=== PATIENT | female | born 1955 | race Caucasian/White ===

== ENCOUNTER 2024-02-29 06:46 | Emergency (ER) | payer MEDICARE, BC, SELFPAY ==
[2024-02-29] VITALS (11 sets, daily range): BP systolic 85–122; BP diastolic 47–58; PULSE 64–85; RESP 15–53; TEMP 36.9; O2SAT 95–100; BMI 18.8
--- NOTE | 2024-02-29 07:04 | DI.RAD.S_ITS ---
PROCEDURE: XR CHEST 1V INDICATIONS: chest pain TECHNIQUE: One view of the chest was acquired. COMPARISON: None. FINDINGS: Surgical changes and devices: None. Lungs and pleura: Lungs are clear. No pleural effusions or pneumothorax. Mediastinum: Mediastinal contours appear normal. Heart size is normal. Bones and chest wall: No suspicious bony lesions. Overlying soft tissues appear unremarkable. IMPRESSION: No acute cardiopulmonary abnormality is seen. Dictated by: Brent Goetz M.D. on 02/29/2024 at 8:07 Approved by: Brent Goetz M.D. on 02/29/2024 at 8:10
[2024-02-29 07:13] LABS: Add Manual Diff / Slide Review NO; Basophils Absolute Auto 0 /uL (0-100); Basophils Percent Auto 0.4 % (0-2); Eosinophils Absolute Auto 0 /uL (0-450); Eosinophils Percent Auto 0.1 % (2-4); Hematocrit 36.7 % (36-46); Hemoglobin 12.5 g/dL (12.0-16.0); Lymphocytes Absolute Auto 1100 /uL (1100-4500); Lymphocytes Percent Auto 13.4 % (25-40); Mean Corpuscular HGB Conc 34.1 % (30-36); Mean Corpuscular Hemoglobin 30.5 PG (26-34); Mean Corpuscular Volume 89.5 fL (80-100); Monocytes Absolute Auto 900 /uL (0-900); Monocytes Percent Auto 10.9 % (3-14); Neutrophils Absolute Auto 6100 /uL (1500-7000); Neutrophils Percent Auto 75.2 % (50-75); Platelet Count 268 X10^3/uL (150-400); Red Cell Distribution Width 12.8 % (11.6-14.8); White Blood Cell Count 8.1 X10^3/uL (4.5-11.0)
[2024-02-29 07:16] LABS: INR 1.1 (0.9-1.3); Prothrombin Time 12.5 SECONDS (9.4-12.5)
[2024-02-29 07:18] LABS: PTT Partial Thromboplastin Tim 35 SECONDS (25.1-36.5)
[2024-02-29 07:20] LABS: Alanine Aminotransferase 14 IU/L (<35); Albumin 4.6 g/dL (3.5-5.0); Albumin Globulin Ratio 1.4 (1.0-2.8); Alkaline Phosphatase 49 U/L (38-126); Aspartate Aminotransferase 22 IU/L (14-36); BUN Creatinine Ratio 15.3 (6-22); Bilirubin Total 1.8 mg/dL (0.2-1.3); Blood Urea Nitrogen 13 mg/dL (7-17); Carbon Dioxide 26 mmol/L (22-32); Chloride 107 mmol/L (98-107); Creatine Kinase 54 U/L (30-135); Estimated Glomerular Filt Rate > 60 mL/min (>60); Globulin 3.2 g/dL (1.7-4.1); Glucose 120 mg/dL (80-110); HEMOLYSIS < 15 (0-50); Lipase 39 U/L (23-300); Magnesium 2.1 mg/dL (1.6-2.3); Potassium 3.9 mmol/L (3.4-5.1); Sodium 139 mmol/L (137-145); Total Protein 7.8 g/dL (6.3-8.2)
[2024-02-29] MEDS: ASPIRIN 81 MG CHEW TAB 324 MG PO (07:20)
[2024-02-29 07:31] LABS: Troponin I < 0.012 ng/mL (0.01-0.034)
--- NOTE | 2024-02-29 07:35 | ED_ITS ---
HPI - Chest Pain General Chief Complaint: Chest Pain Stated Complaint: chest pain Time Seen by Provider: 02/29/24 06:48 Source: patient Mode of arrival: Ambulatory Limitations: no limitations History of Present Illness HPI narrative: 69-year-old female with history of Jody's thyroiditis, osteoporosis presents by private vehicle from home for chest tightness and shortness of breath earlier this morning with associated chills and tremulousness. Patient states that she woke up early this morning with symptoms that resolved when she sat up in bed. This has never happened previously. Denies history of heart disease. Does report recent air travel from [place] to [place]. States she is currently symptom-free. Related Data Allergies Allergy/AdvReac Type Severity Reaction Status Date / Time No Known Drug Allergies Allergy Verified 02/29/24 07:04 Review of Systems Review of Systems Narrative: See HPI Patient History Social History Smoking Status: Former smoker Smoking Status: Former smoker Substance Use Type: does not use Exam Initial Vital Signs Initial Vital Signs: Vital Signs Pulse Rate 82 02/29/24 06:59 Respiratory Rate 17 02/29/24 06:59 Blood Pressure 122/58 L 02/29/24 06:59 Pulse Oximetry 97 02/29/24 06:59 Const: Awake, alert, no acute distress, nontoxic appearing Cardiac: regular rate, regular rhythm RESP: unlabored, clear bilaterally, no wheezing GI: Soft, nontender, nondistended, no rebound, no guarding MSK: Atraumatic, full range of motion, pulses equal Skin: Warm, Dry, intact, no rashes Neuro: AO x3, CN II-XII grossly intact, moves all extremities Course Orders Ordered: ED Orders 02/29/24 06:55 BNP [NT-proBNP (BNP-Adult 18+)] Stat Complete Blood Count AUTO DIFF Stat Comprehensive Metabolic Panel Stat D Dimer Stat Lipase Stat Magnesium Stat PTT Partial Thromboplastin Mervin Stat Prothrombin Time INR Stat Troponin & CK Cardiac Panel Stat 02/29/24 07:04 XR chest 1V Stat EKG-12 Lead Stat 02/29/24 09:00 Trop I [Troponin I] Stat Discontinued Medications Acetaminophen (Acetaminophen 325 Mg Tablet) 650 mg PO NOW ONE Stop: 02/29/24 09:20 Last Admin: 02/29/24 09:36 Dose: 650 mg Documented By: SPF Aspirin (Aspirin 81 Mg Chew Tab) 324 mg PO NOW ONE Stop: 02/29/24 07:05 Last Admin: 02/29/24 07:20 Dose: 324 mg Documented By: RANCHO Vital Signs Vital signs: Vital Signs - 8 hr 02/29/24 06:59 02/29/24 06:59 02/29/24 06:59 Temperature Pulse Rate 82 82 Respiratory Rate 17 17 Blood Pressure 122/58 L Pulse Oximetry 97 97 Oxygen Delivery Method 02/29/24 07:00 02/29/24 07:00 02/29/24 07:00 Temperature 98.5 F Pulse Rate 80 80 Respiratory Rate 19 17 Blood Pressure 110/55 L 110/55 L Pulse Oximetry 98 97 Oxygen Delivery Method Room Air 02/29/24 07:30 02/29/24 07:30 02/29/24 08:00 Temperature Pulse Rate 85 Respiratory Rate 16 Blood Pressure 119/57 L 92/54 L Pulse Oximetry 100 Oxygen Delivery Method Room Air 02/29/24 08:00 02/29/24 08:30 02/29/24 08:30 Temperature Pulse Rate 79 75 Respiratory Rate 15 15 Blood Pressure 92/53 L Pulse Oximetry 96 95 Oxygen Delivery Method 02/29/24 09:00 02/29/24 09:00 02/29/24 09:01 Temperature Pulse Rate 66 Respiratory Rate 21 Blood Pressure 86/47 L 85/52 L Pulse Oximetry 98 Oxygen Delivery Method 02/29/24 09:01 02/29/24 09:15 02/29/24 09:15 Temperature Pulse Rate 70 72 Respiratory Rate 20 15 Blood Pressure 89/54 L Pulse Oximetry 97 96 Oxygen Delivery Method Room Air 02/29/24 09:30 02/29/24 09:30 02/29/24 10:00 Temperature Pulse Rate 66 69 Respiratory Rate 53 H 40 H Blood Pressure 96/55 L Pulse Oximetry 96 96 Oxygen Delivery Method 02/29/24 10:00 02/29/24 10:30 Temperature Pulse Rate 64 Respiratory Rate Blood Pressure 91/54 L Pulse Oximetry Oxygen Delivery Method MDM - Chest Pain Differential Diagnosis Differential diagnosis: Likely fracture of rib, pneumothorax and stable angina Lab Data 02/29/24 06:55 02/29/24 06:55 Labs: Lab Results 02/29/24 02/29/24 Range/Units 06:55 09:00 WBC 8.1 (4.5-11.0) X10^3/uL RBC 4.10 (4.0-5.2) X10^6/uL Hgb 12.5 (12.0-16.0) g/dL Hct 36.7 (36-46) % MCV 89.5 (80-100) fL MCH 30.5 (26-34) PG MCHC 34.1 (30-36) % RDW 12.8 (11.6-14.8) % Plt Count 268 (150-400) X10^3/uL Neut % (Auto) 75.2 H (50-75) % Lymph % (Auto) 13.4 L (25-40) % [place] % (Auto) 10.9 (3-14) % Eos % (Auto) 0.1 L (2-4) % Baso % (Auto) 0.4 (0-2) % Neut # (Auto) 6100 (7139-0197) /uL Lymph # (Auto) 1100 (5363-4956) /uL [place] # (Auto) 900 (0-900) /uL Eos # (Auto) 0 (0-450) /uL Baso # (Auto) 0 (0-100) /uL PT 12.5 (9.4-12.5) SECONDS INR 1.1 (0.9-1.3) APTT 35 (25.1-36.5) SECONDS D-Dimer 402 (<500) ng/ml Sodium 139 (137-145) mmol/L Potassium 3.9 (3.4-5.1) mmol/L Chloride 107 (98-107) mmol/L Carbon Dioxide 26 (22-32) mmol/L BUN 13 (7-17) mg/dL Creatinine 0.85 (0.52-1.04) mg/dL Estimated GFR > 60 (>60) mL/min BUN/Creatinine Ratio 15.3 (6-22) Glucose 120 H (80-110) mg/dL Calcium 9.0 (8.4-10.2) mg/dL Magnesium 2.1 (1.6-2.3) mg/dL Total Bilirubin 1.8 H (0.2-1.3) mg/dL AST 22 (14-36) IU/L ALT 14 (<35) IU/L Alkaline Phosphatase 49 (38-126) U/L Total Creatine Kinase 54 (30-135) U/L Troponin I < 0.012 < 0.012 (0.01-0.034) ng/mL NT-Pro-B Natriuret Pep 664 H (<125) pg/mL Total Protein 7.8 (6.3-8.2) g/dL Albumin 4.6 (3.5-5.0) g/dL Globulin 3.2 (1.7-4.1) g/dL Albumin/Globulin Ratio 1.4 (1.0-2.8) Lipase 39 (23-300) U/L Imaging Data Chest x-ray: Radiologist's Impression: PROCEDURE: XR CHEST 1V INDICATIONS: chest pain TECHNIQUE: One view of the chest was acquired. COMPARISON: None. FINDINGS: Surgical changes and devices: None. Lungs and pleura: Lungs are clear. No pleural effusions or pneumothorax. Mediastinum: Mediastinal contours appear normal. Heart size is normal. Bones and chest wall: No suspicious bony lesions. Overlying soft tissues appear unremarkable. IMPRESSION: No acute cardiopulmonary abnormality is seen. Dictated by: Brent Goetz M.D. on 02/29/2024 at 8:07 Approved by: Brent Goetz M.D. on 02/29/2024 at 8:10 ECG Data Interpretation: Normal sinus rhythm at 82 beats per minute. Normal LA, no ST T wave changes, no STEMI MDM Narrative Medical decision making narrative: Well-appearing patient with chest tightness and shortness of breath early this morning, has since resolved with no recurrence of symptoms. EKG is normal sinus rhythm without concerning findings. Patient is normal sinus rhythm on rn cardiac cath, vital signs within normal limits. Based on patient's age and recent air travel can not use PERC rule and a D-dimer will be ordered on top of cardiac workup. Laboratory work is reviewed, unremarkable. WBC count 8.1, hemoglobin 12.5, platelets 268, sodium 139, potassium 3.9, creatinine 0.85, troponin undetectable x2, BNP 6 6 4. Lungs are clear to auscultation bilaterally, chest x-ray negative for acute findings. While in the emergency department patient has had no recurrence of her symptoms and continues to feel well and without any complaints. Patient and her has been counseled on all lab and imaging findings, recommended PCP as well as cardiology follow up if she continues to experience symptoms. ED return precautions discussed at bedside. Discharge Plan Departure Patient Disposition: Home Clinical Impression: Chest pain Instructions: DI for Chest Pain Activity Restrictions/Additional Instructions: Your laboratory work, chest x-ray, EKG were all normal today. I do not know the cause of your chest pain but it was not look like an active heart attack at this time. Please follow up with your primary care physician. Return to the emergency department if you have new or worsening symptoms. Stand Alone Forms: Patient Portal/API
--- NOTE | 2024-02-29 07:37 | PC.NURSE ---
Pt has history of hashimotos disease, TMJ pain, migraines, osteopenia. Pt reports having left lung pleurisy years ago, which at one point felt similar to her chest pain today. While at home last night pt reports pain was almost unbearable and since has resolved to 1/10 substernal chest pain. SOB with orthopnea, feeling better while sitting up. States it hurts to take deep breathes.
[2024-02-29 07:59] LABS: NT-proBNP (BNP-Adult 18+) 664 pg/mL (<125)
[2024-02-29 08:03] LABS: D Dimer 402 ng/ml (<500)
--- NOTE | 2024-02-29 09:10 | PC.NURSE ---
Provider notified of pt's hypotension, no new orders. BP increasing with MAP above 65.
[2024-02-29 09:32] LABS: Troponin I < 0.012 ng/mL (0.01-0.034)
[2024-02-29] MEDS: ACETAMINOPHEN 325 MG TABLET 650 MG PO (09:36)
== END 2024-02-29 10:31 | disposition home or self-care (01) ==
PROVIDERS: Emergency Provider Emergency Medicine
DX: R07.9 Chest pain, unspecified (principal); R06.02 Shortness of breath
CPT/HCPCS: 36415; 71045; 80053; 82550; 83690; 83735; 83880; 84484; 85025; 85379; 85610; 85730; 93005; 93010; 99284